=== PATIENT | female | born 1935 | race Caucasian/White ===

== ENCOUNTER → 2023-10-10 14:40 | Outpatient (REF) | payer OTHER, SELFPAY | LOC: RCS 14:40 | PROVIDERS: ATTENDING PHYSICIAN Nurse Practitioner Family | DX: R06.02 Shortness of breath (principal); J44.1 Chronic obstructive pulmonary disease with (acute) exacerbation; R06.09 Other forms of dyspnea | CPT/HCPCS: 71046; 93005 ==

== ENCOUNTER → 2023-12-09 13:50 | Outpatient (REF) | payer OTHER, SELFPAY | LOC: RAD 13:50 | PROVIDERS: ATTENDING PHYSICIAN Nurse Practitioner Family; FAMILY PHYSICIAN Internal Medicine Geriatric Medicine | DX: J18.9 Pneumonia, unspecified organism (principal) | CPT/HCPCS: 71046 ==

== ENCOUNTER 2024-02-16 00:07 | Emergency (ER) | payer OTHER, SELFPAY ==
[2024-02-16 00:09] VITALS: BP 176/78
--- NOTE | 2024-02-16 00:41 | ED.MUSCINJ ---
HPI-Injury
General
Chief Complaint: Musculo-Skeletal Complaint
Source: patient
Exam Limitations: none
Time Seen by Provider: 02/16/24 00:33
History of Present Illness-Injury
Is this injury a work related problem?: No
Is pt an associate of [facility]?: No
Initial Injury comments:
This is a 88 year old female that comes in with c/o left shoulder pain. States that around 7pm she missed a step and fell down onto tile. Staes that she can't move her left arm. States that she did not hit her head or have any LOC. States that she
was visiting a friend in [place] and they came home after this happened. States that she is SOB with activity but this is normal. Denies any fever, chills, chest pain, SOB at this time, abd pain, nausea, vomiting, diarrhea, headache, dizziness,
urinary burning.
Past History
Past History
ED Past Medical History: COPD and Hypothyroidism
ED Past Surgical History: Other (Breast surgery)
Social History
Tobacco: Former smoker
Alcohol: Occasional
Drug: None
Personal:
Living: alone
Employment: Other
Family History
Family History: Other
Review of Systems
Review of Systems
All Other Systems: ROS reviewed and negative except as documented in HPI and ROS
Constitutional: Reports no symptoms; Denies fever or chills
EENT: Reports no symptoms
Respiratory: Reports trouble breathing (occasional with activity)
Cardiac: Reports no symptoms; Denies chest pain
ABD/GI: Reports no symptoms; Denies abdominal pain, nausea, vomiting or diarrhea
: Reports no symptoms; Denies dysuria, frequency or urgency
Musculoskeletal: Reports joint pain (Left shoulder pain)
Skin: Reports no symptoms
Neurological: Reports no symptoms; Denies dizzy or headache
Psychiatric: Reports no symptoms
Musculoskeletal Injury Exam
Musculoskeletal Injury Exam
Left Shoulder:
Pain with Movement?: Moderate
Tender to palpation?: Mild
Soft tissue swelling?: Moderate
External deformity and angulation?: None
Joint effusion?: None
Hematoma-local bleeding into tissue?: None
Strain- Sprain- Tear (Connective tissue injury)?: None
Crepitus with movement?: No
Joint instability?: No
Range of motion: Limited (Due to pain)
Distal skin color and temperature: normal-warm & good color
Capillary Refill: normal
Normal distal neurovascular exam?: Yes
Phy Exam
General Physical Exam
General Presentation: well appearing and no apparent distress
General age: appears stated age
General Skin: warm and dry
General Habitus: elderly
General Mental: alert
General Hydration: appears well hydrated
ENT Exam
ENT Exam: TM's normal, pharynx normal and neck supple
Eye Exam
Eye Exam: EOMI
Cardiovascular Exam
Cardiovascular Exam: regular rate/rhythm, no edema and normal peripheral pulses
Gastrointestinal Exam
Gastrointestinal Exam: normal bowel sounds, non tender, soft, no organomegaly, no pulsatile mass and non distended
Musculoskeletal Exam
Musculoskeletal Exam: other (left shoulder tenderness with palpation. Negative for any cervical neck tenderness or right shoulder tenderness. Negative discomfort with Flexion of the knee's, inversion or eversion. Discomfort left shoulder with
flexion left elbow. Negative for pain with wrist and finger movement. )
Skin Exam
Skin Exam: normal color, warm/dry, no rash and no petechia
Psychiatric Exam
Psychiatric Exam: normal mood/affect
Injury Course
Orders/Labs/Results
Orders:
Orders
02/16/24 00:40
Ibuprofen [Motrin] 600 mg PO NOW STA
CR Shoulder, Trauma - Left Urgent
Reason For Exam: fall,pain
MDM/Problems Addressed
Differential Diagnosis Includes:
Left shoulder fracture, Dislocation.
MDM/Problems Addressed:
This is a 88 year old female that comes in with c/o left shoulder pain after missing a step. States that this happened at 7pm when she was at [place] and they drove home.
will get X-rays of the left shoulder.
Back into see patient. Explained that she has a fracture humeral head. Patient will be place in a shoulder immobilizer and follow up with the hardwood flooring specialist. Patient to return with any concerns.
Chronic conditions affecting care:
NA
Acute Exacerbation and/or Progression of Chronic Illness:
NA
*Radiology
Radiology exam reviewed: preliminary read by ED provider (Shoulder = Left humeral head fracture with impaction)
*Pulse Oximetry
Patient hypoxic: no
*EKG
Interpreted by ED Provider?: NA
Rate: EKG- N/A
*Test Engine Evaluator Interpretation
Rate: Test Engine Evaluator- N/A
*Critical Care Note
Total Time (30-74mins, 75-104mins- exclusive of procedures): Not Applicable
ED Attending Note
-
Portions of this chart may have been created with voice recognition software.� Occasional wrong word or��sound alike� substitutions may have occurred due to the inherent limitations of voice recognition software.
Discharge Plan
Departure
Patient Disposition: Home (Routine Discharge)
Date of Disposition: 02/16/24
Time of Disposition: 01:22
Patient with high blood pressure during this ER visit?: Yes
Condition: Good
Covid-19: Not Applicable
Discharge Problem:
Fracture of humeral head, left, closed
Instructions: Upper Arm Fracture ED, BLOOD PRESSURE, RICE Therapy
Prescriptions:
New
oxycodone 5 mg tablet
5 mg PO Q6H PRN (Reason: Pain) Qty: 12 0RF
No Action
levothyroxine [Levoxyl] 50 mcg Tablet
50 mcg PO DAILY@0700
aspirin 81 mg Tablet
81 mg PO DAILY
[id number] Tablet
1 tab PO DAILY
cholecalciferol (vitamin D3) [Vitamin D3] 50 mcg (2,000 unit) Capsule
50 mcg PO DAILY
ipratropium-albuterol 0.5 mg-3 mg(2.5 mg base)/3 mL Solution For Nebulization
3 ml inhalation R QID 30 Days Qty: 100 0RF
albuterol sulfate 2.5 mg /3 mL (0.083 %) Solution For Nebulization
2.5 mg inhalation R Q4HPRN PRN (Reason: shortness of breath) 30 Days Qty: 180 0RF
prednisone 20 mg tablet
40 mg PO DAILY 3 Days Qty: 6 0RF
Rx Instructions:
first dose on 04/27/22
Referrals:
Ty Johnson MD [Active] - Follow up in 2-3 days
Serafin Olivarez MD [Family Provider] -
Activity Restrictions/Additional Instructions:
As discussed, you have a left shoulder humeral head fracture with impaction. You have been place in a Shoulder immobilizer. Please leave this in place until you are seen by the hardwood flooring specialist. Please call there office Saturday morning. You may
take Tylenol 1000mg every 6 hours for pain and alternate with Ibuprofen 600mg every 6 hours with food. Please use ice to the shoulder to help with pain control. You have also had a Narcotic pain medication sent to your Pharmacy. This will make you
tired so please no alcohol when taking. IF YOU HAVE INCREASED OR CHANGING PAIN, OR YOU HAVE ANY OTHER CONCERNS PLEASE RETURN TO THE EMERGENCY ROOM.
Interventions
Interventions:
*Risk Screen - Suicide Last Done: 02/16/24 01:15
*General Assessment Last Done: 02/16/24 01:15
*Neglect/Abuse Screening Last Done: 02/16/24 01:15
*ED COVID-19 Vaccine History Last Done: 02/16/24 01:15
Discharge Date and Time
Print Language: ERITREAN
[2024-02-16] MEDS: MOTRIN 600 MG PO (01:13)
[2024-02-16 01:17] VITALS: BP 179/61
[2024-02-16] MEDS: ROXICODONE 5 MG PO (01:25)
== END 2024-02-16 00:43 | disposition home or self-care (01) ==
LOC: EMR 00:07
PROVIDERS: EMERGENCY PHYSICIAN Emergency Medicine; FAMILY PHYSICIAN Internal Medicine Geriatric Medicine
DX: S42.292A Other displaced fracture of upper end of left humerus, initial encounter for closed fracture (principal); W10.9XXA Fall (on) (from) unspecified stairs and steps, initial encounter; R03.0 Elevated blood-pressure reading, without diagnosis of hypertension; Z87.891 Personal history of nicotine dependence
CPT/HCPCS: 99283; 73030